=== PATIENT | female | born 1965 | race American Indian/Alaskan Native ===

== ENCOUNTER 2016-11-16 18:51 | Emergency (ER) | payer OTHER ==
[2016-11-16 19:03] VITALS: BP 145/101
[2016-11-16] MEDS ORDERED: BOOSTRIX IM ONE (20:20)
--- NOTE | 2016-11-16 20:25 | Emergency Department Report ---
ED Lower Extremity HPI - General Chief Complaint: Extremity Injury, Lower Stated Complaint: GLASS IN FOOT Time Seen by Provider: 11/16/16 20:08 Source: patient Mode of arrival: Ambulatory Limitations: No Limitations - History of Present Illness Initial Comments: I stepped on a piece of glass and got it in my foot MD Complaint: foot injury Onset/Timin -: hour(s) Injury: Foot: Right (glass/foriegn body ) Type of Injury: puncture wound Place: home Severity: mild Severity scale (0 -10): 3 Improves With: nothing Worsens With: weight bearing, palpation Context: other (stepped on piece of glass ) - Related Data Previous Rx's Medication Instructions Recorded Last Taken Type Bisacodyl [Dulcolax suppos] 10 mg DC QDAY PRN #12 supp.rect 03/15/16 Unknown Rx Levofloxacin [Levaquin TAB] 500 mg PO Q24HR #6 03/15/16 Unknown Rx metroNIDAZOLE [Flagyl TAB] 500 mg PO Q8H #18 tablet 03/15/16 Unknown Rx oxyCODONE /ACETAMINOPHEN [Percocet 1 tab PO Q6H PRN #12 tablet 03/15/16 Unknown Rx 5/325 mg] Allergies Allergy/AdvReac Type Severity Reaction Status Date / Time shellfish derived Allergy Hives Verified 07/24/15 14:01 ED Review of Systems ROS: Stated complaint: GLASS IN FOOT Other details as noted in HPI Constitutional: denies: chills, fever Eyes: denies: eye pain, eye discharge, vision change ENT: denies: ear pain, throat pain Respiratory: denies: cough, shortness of breath, wheezing Cardiovascular: denies: chest pain, palpitations Endocrine: no symptoms reported Gastrointestinal: denies: abdominal pain, nausea, diarrhea Genitourinary: denies: urgency, dysuria, discharge Musculoskeletal: other (right foot pain foreign body ) Skin: other (puncture wound right plantar foot ) Neurological: denies: headache, weakness, paresthesias Psychiatric: denies: anxiety, depression Hematological/Lymphatic: denies: easy bleeding, easy bruising ED Past Medical Hx - Past Medical History Previous Medical History?: Yes Hx Hypertension: Yes Hx Congestive Heart Failure: Yes Hx Diabetes: Yes Hx Renal Disease: No Hx Seizures: No Hx Asthma: No - Surgical History Past Surgical History?: Yes Hx Cholecystectomy: Yes Hx Appendectomy: Yes Additional Surgical History: hysterectomy. - Social History Smoking Status: Never Smoker Substance Use Type: Prescribed - Medications Home Medications: Home Medications Medication Instructions Recorded Confirmed Last Taken Type Bisacodyl [Dulcolax suppos] 10 mg DC QDAY PRN #12 supp.rect 03/15/16 Unknown Rx Levofloxacin [Levaquin TAB] 500 mg PO Q24HR #6 03/15/16 Unknown Rx metroNIDAZOLE [Flagyl TAB] 500 mg PO Q8H #18 tablet 03/15/16 Unknown Rx oxyCODONE /ACETAMINOPHEN [Percocet 1 tab PO Q6H PRN #12 tablet 03/15/16 Unknown Rx 5/325 mg] ED Physical Exam - General Limitations: No Limitations General appearance: alert, in no apparent distress - Head Head exam: Present: atraumatic, normocephalic - Eye Eye exam: Present: normal appearance - ENT ENT exam: Present: mucous membranes moist - Neck Neck exam: Present: normal inspection - Respiratory Respiratory exam: Present: normal lung sounds bilaterally. Absent: respiratory distress - Cardiovascular Cardiovascular Exam: Present: regular rate, normal rhythm. Absent: systolic murmur, diastolic murmur, rubs, gallop - GI/Abdominal GI/Abdominal exam: Present: soft, normal bowel sounds - Rectal Rectal exam: Present: deferred - Expanded Lower Extremity Exam Right Hip exam: Present: normal inspection Upper Leg exam: Present: normal inspection Knee exam: Present: normal inspection Lower Leg exam: Present: normal inspection Ankle exam: Present: normal inspection Foot/Toe exam: Present: full ROM, tenderness, puncture wound (foreignbody less than 1 cm, ), foreign body. Absent: swelling, abrasion, ecchymosis, deformity, crepidus, dislocation, erythema, amputation, calcaneal tenderness, tenderness at base of 5th metatarsal, nail avulsion, subungual hematoma Neuro vascular tendon exam: Present: no vascular compromise. Absent: pulse deficit, abnormal cap refill, motor deficit, sensory deficit, tendon deficit, extremity cold to touch, pallor, abnormal 2-point discrimination, decreased fine /light touch, foot drop, peroneal nerve deficit, significant pain with passive ROM of distal joint Gait: Positive: observed and limited by pain ED Course Vital Signs 11/16/16 18:59 Temperature 98.2 F Pulse Rate 75 Respiratory 20 Rate Blood Pressure 145/101 O2 Sat by Pulse 100 Oximetry - I & D Right Plantar Foot Type of Procedure: Simple Site: right plantar foot I & D Procedure: betadine prep Progress: foreign body removal glass shaving, sit cleaned with betadine solution , anesthesia with 1% lidocaine plain, shaving remove via 18g needle straight stick time 1, shaving less than 1 cm removed intact pt advises foreign body sensation relieved ambulatory gait steady, bandaid applied no bleeding pt tolerated procedure with minimal distress ED Lower Extremity MDM - Medical Decision Making pt stepped on a piece of glass on floor at home appoximated 4 hrs ago foreignbody sensation preventing full weight bearing, foreign body removed intact, see procedure note, pt tolerated same with minimal distress, tdap at this time, pt now ambullatory gait steady foreign body sensation is relieved. Critical care attestation.: If time is entered above; I have spent that time in minutes in the direct care of this critically ill patient, excluding procedure time. ED Disposition Clinical Impression: Foreign body in foot, right Qualifiers: Encounter type: initial encounter Qualified Code(s): S90.851A - Superficial foreign body, right foot, initial encounter Diverticulitis large intestine Qualifiers: Diverticulitis bleeding: without bleeding Diverticulitis complication: without perforation or abscess Qualified Code(s): K57.32 - Diverticulitis of large intestine without perforation or abscess without bleeding Disposition: DC-01 TO HOME OR SELFCARE Is pt being admited?: No Does the pt Need Aspirin: No Condition: Good Instructions: Soft Tissue Foreign Body (ED) Referrals: PRIMARY CARE, [Primary Care Provider] - 3-5 Days Forms: Work/School Release Form(ED) Time of Disposition: 20:31
== END 2016-11-16 20:51 | disposition home or self-care (01) ==
LOC: ED 18:51
DX: S90.851A Superficial foreign body, right foot, initial encounter (principal); K57.32 Diverticulitis of large intestine without perforation or abscess without bleeding; I10 Essential (primary) hypertension; I50.9 Heart failure, unspecified; E11.9 Type 2 diabetes mellitus without complications; Z90.49 Acquired absence of other specified parts of digestive tract; Z91.013 Allergy to seafood; W45.8XXA Other foreign body or object entering through skin, initial encounter; W25.XXXA Contact with sharp glass, initial encounter; Y93.89 Activity, other specified; Y92.89 Other specified places as the place of occurrence of the external cause; Y99.8 Other external cause status
CPT/HCPCS: 90471; 90715

== ENCOUNTER 2018-07-19 09:36 | Emergency (ER) | payer OTHER ==
[2018-07-19 09:49] VITALS: BP 149/99
[2018-07-19] MEDS ORDERED: NACL 0.9% 1000 ML 1,000 ML IV ONE (09:49)
[2018-07-19 10:08] LABS: Basophils # (Auto) 0.1 K/mm3 (0.0-0.1); Basophils % (Auto) 0.9 % (0.0-1.8); Eosinophils % (Auto) 0.5 % (0.0-4.3); Hematocrit 35.4 % (30.3-42.9); Hemoglobin 11.6 gm/dl (10.1-14.3); Lymphocytes # (Auto) 1.6 K/mm3 (1.2-5.4); Lymphocytes % (Auto) 25.6 % (13.4-35.0); Mean Corpuscular HGB Conc 33 % (30-34); Mean Corpuscular Volume 76 fl (79-97); Monocytes # (Auto) 0.5 K/mm3 (0.0-0.8); Monocytes % (Auto) 8.7 % (0.0-7.3); Platelet Count 272 K/mm3 (140-440); Red Blood Count 4.69 M/mm3 (3.65-5.03)
[2018-07-19 10:24] LABS: Alanine Aminotransferase 10 units/L (7-56); Albumin 3.8 g/dL (3.9-5); BUN/Creatinine Ratio 14; Blood Urea Nitrogen 10 mg/dL (7-17); Calcium 9.5 mg/dL (8.4-10.2); Hemolysis Index 32
[2018-07-19 10:28] LABS: Bilirubin,Urine NEG (Negative); Blood,Urine NEG (Negative); Color,Urine Straw (Yellow); Protein,Urine <15 mg/dL mg/dL (Negative); Urobilinogen,Urine < 2.0 mg/dL (<2.0); WBC,Urine < 1.0 /HPF (0.0-6.0)
[2018-07-19] MEDS ORDERED: MORPHINE IM ONE (10:56)
[2018-07-19] MEDS ORDERED: ZOFRAN IM ONE (10:56)
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
--- NOTE | 2018-07-19 11:59 | Cat Scan Report ---
PROCEDURE: CT ABDOMEN PELVIS W CON TECHNIQUE: Computerized axial tomography of the abdomen and pelvis was performed after the IV inject ion of iodinated nonionic contrast. Coronal and sagittal reconstructed imaging provided. CT DOSE LENGTH PRODUCT: 3645.80 mGy-cm. HISTORY: abdominal pain COMPARISONS: None currently available. FINDINGS: Abdomen: Lung bases and images of the heart are grossly unremarkable. Prior cholecystectomy. Liver, stomach, spleen, pancreas, and adrenals are unremarkable. Kidneys: Symmetrical cortical enhancement. No suspicious lesions. No hydronephrosis. No aneurysm. No dissection. Mild atherosclerotic disease. IVC is unremarkable. There is no periaortic or retroperitoneal adenopathy or mass. Sections of the descending proximal sigmoid colon are collapsed which limits evaluation for wall thic kening. A mild colitis is not entirely excluded. Mild wall thickening suspected. There may be some mi nimal stranding. No perforation. No abscess. Mild to moderate stool in the remainder of the colon wit hout wall thickening or stranding. Terminal ileum is unremarkable. The appendix is not identified. There are no pericecal inflammatory changes. Small bowel loops are unremarkable. No obstructive pattern. No air-fluid levels. No free air. No free fluid. Mesentery is unremarkable. Midline incisional scar. Pelvis: Limited images of the uterus are unremarkable. Bladder: Unremarkable. Delayed images does not demonstrate any wall thickening or filling defects. There is no pelvic mass or adenopathy. Inguinal regions are unremarkable. Bones: No suspicious osseous lesions on this limited examination of the skeleton. Metastatic disease better evaluated with bone scan. Degenerative changes are in the spine. IMPRESSION: * Suspect mild colitis or diverticulitis of the descending and proximal sigmoid colon without perfor ation or abscess. . This document is electronically signed by Terrance Booth MD., July 19 2018 11:57:17 AM ET
== END 2018-07-19 13:43 | disposition home or self-care (01) ==
LOC: ED 09:36
DX: K57.32 Diverticulitis of large intestine without perforation or abscess without bleeding (principal); I11.0 Hypertensive heart disease with heart failure; E11.9 Type 2 diabetes mellitus without complications; Z90.49 Acquired absence of other specified parts of digestive tract; Z91.013 Allergy to seafood; Z90.710 Acquired absence of both cervix and uterus
CPT/HCPCS: 36415; 74177; 80053; 81001; 85025; 96372; 99284; J2270; J2405; J7030; Q9967

== ENCOUNTER 2019-01-18 22:26 | Emergency (ER) | payer BC, OTHER ==
[2019-01-19] MEDS ORDERED: NACL 0.9% 1000 ML 1,000 ML IV ONE (02:27)
[2019-01-19 03:28] LABS: Basophils % (Auto) 0.3 % (0.0-1.8); Eosinophils % (Auto) 0.4 % (0.0-4.3); Hematocrit 37.1 % (30.3-42.9); Hemoglobin 12.2 gm/dl (10.1-14.3); Lymphocytes # (Auto) 2.1 K/mm3 (1.2-5.4); Lymphocytes % (Auto) 25.2 % (13.4-35.0); Mean Corpuscular HGB Conc 33 % (30-34); Mean Corpuscular Volume 76 fl (79-97); Monocytes # (Auto) 0.7 K/mm3 (0.0-0.8); Monocytes % (Auto) 8.1 % (0.0-7.3); Platelet Count 317 K/mm3 (140-440); Red Cell Distribution Width 14.6 % (13.2-15.2)
[2019-01-19 03:47] LABS: BUN/Creatinine Ratio 23; Blood Urea Nitrogen 16 mg/dL (7-17); Calcium 9.9 mg/dL (8.4-10.2); Hemolysis Index 2
--- NOTE | 2019-01-19 05:13 | Cat Scan Report ---
CT ABDOMEN AND PELVIS WITH CONTRAST INDICATION: Abd pain, constipation CONTRAST: 100 cc Omnipaque 300 IV COMPARISON: 07/19/[address] scans at this location are performed using CT dose reduction for ALARA by means of automated e xposure control. NOTE: Resolution is decreased and artifact is introduced by the patient's size. FINDINGS: Lung bases are clear. No pneumoperitoneum is seen. Gallbladder has been removed. No biliary dilatation is seen. No urinary or bowel obstructive changes are noted. Appendix is not identified. M oderate amount of stool is seen in the colon, more on the right, which may indicate mild constipation . Diverticulosis is seen of the descending and sigmoid colon without obvious formation. No inflammato ry changes are seen. No free fluid is noted. No masses are seen. IMPRESSION: No acute abnormalities are seen Signer Name: Micah Lea MD Signed: 01/19/2019 5:08 AM Workstation Name: [id number]
--- NOTE | 2019-01-19 05:45 | XRay Report ---
ABDOMEN FLAT AND UPRIGHT PORTABLE 0244 INDICATION: Abd pain, constipation for several days, rectal pain, rectal bleeding for 2 days COMPARISON: None available. FINDINGS: No pneumoperitoneum is seen. Bowel gas pattern is unremarkable. I do not see a significant increase in colonic stool. No evidence of bowel obstruction is seen. No obvious urinary tract calculi are noted. Signer Name: Micah Lea MD Signed: 01/19/2019 5:40 AM Workstation Name: [id number]
--- NOTE | 2019-01-19 06:10 | Emergency Department Report ---
HPI - General Time Seen by Provider: 01/19/19 01:35 - HPI HPI: 53-year-old female presents to the emergency department with a complaint of some lower abdominal pain and constipation. Patient says she has not had a bowel movement since last , 5 days ago. The patient has tried multiple [id number] medications including MiraLAX, 2 doses of Colace, and a Fleet enema. She just complains of some rectal pain with some mild bleeding. She denies any past medical history. She has a primary care physician but has not seen them regarding her symptoms. No recent travel or sick contacts at home. She denies any fever, dysuria, vaginal discharge. ED Past Medical Hx - Past Medical History Previous Medical History?: Yes Hx Hypertension: Yes Hx Congestive Heart Failure: Yes Hx Diabetes: Yes Hx Renal Disease: No Hx Seizures: No Hx Asthma: No - Surgical History Past Surgical History?: Yes Hx Cholecystectomy: Yes Hx Appendectomy: Yes Additional Surgical History: hysterectomy. - Social History Smoking Status: Never Smoker Substance Use Type: None - Medications Home Medications: Home Medications Medication Instructions Recorded Confirmed Last Taken Type Bisacodyl [Dulcolax suppos] 10 mg TX QDAY PRN #12 supp.rect 03/15/16 Unknown Rx levoFLOXacin [Levaquin TAB] 500 mg PO Q24HR #6 03/15/16 Unknown Rx metroNIDAZOLE [Flagyl TAB] 500 mg PO Q8H #18 tablet 03/15/16 Unknown Rx oxyCODONE /ACETAMINOPHEN [Percocet 1 tab PO Q6H PRN #12 tablet 03/15/16 Unknown Rx 5/325 mg] Amoxicillin/Potassium Clav 1 each PO BID #20 tablet 07/19/18 Unknown Rx [Augmentin 875-125 Tablet] HYDROcodone/APAP 5-325 [[place] 1 each PO Q6HR PRN #14 tablet 07/19/18 Unknown Rx 5/325] Ondansetron [Zofran Odt] 4 mg PO Q8HR PRN #14 tab.rapdis 07/19/18 Unknown Rx metroNIDAZOLE [Flagyl] 500 mg PO Q12HR #14 tab 07/19/18 Unknown Rx Docusate Sodium [Colace] 100 mg PO BID PRN #20 capsule 01/19/19 Unknown Rx Magnesium Citrate [Citrate of 300 ml PO NOW PRN #1 bottle 01/19/19 Unknown Rx Magnesia] ED Review of Systems ROS: Stated complaint: RECTAL PAIN/CONSTIPATION Other details as noted in HPI Comment: All other systems reviewed and negative Constitutional: denies: chills, fever Eyes: denies: eye pain, vision change ENT: denies: ear pain, throat pain Respiratory: denies: cough, shortness of breath Cardiovascular: denies: chest pain, palpitations Gastrointestinal: abdominal pain, constipation, other (rectal pain and bleeding). denies: nausea, vomiting Genitourinary: denies: dysuria, discharge Musculoskeletal: denies: back pain, arthralgia Skin: denies: rash, lesions Neurological: denies: headache, weakness Physical Exam - Physical Exam Vital Signs: Vital Signs 01/19/19 01/19/19 01/19/19 01:55 02:30 03:01 Temperature 97.8 F Pulse Rate 80 76 82 Respiratory 17 15 20 Rate Blood Pressure 112/61 120/65 124/67 Blood Pressure 112/61 [Left] O2 Sat by Pulse 99 98 96 Oximetry 01/19/19 01/19/19 03:30 04:50 Temperature Pulse Rate 72 72 Respiratory 17 20 Rate Blood Pressure 132/87 Blood Pressure 137/104 [Left] O2 Sat by Pulse 93 96 Oximetry Physical Exam: GENERAL: The patient is well-developed well-nourished. HENT: Normocephalic. Atraumatic. Patient has moist mucous membranes. EYES: Extraocular motions are intact. Pupils equal reactive to light bilaterally. NECK: Supple. Trachea is midline. CHEST/LUNGS: Clear to auscultation. There is no respiratory distress noted. HEART/CARDIOVASCULAR: Regular. There is no tachycardia. There is no murmur. ABDOMEN: Abdomen is soft. Lower abdominal tenderness to palpation. No guarding. Patient has normal bowel sounds. Morbidly obese habitus. SKIN: Skin is warm and dry. NEURO: The patient is awake, alert, and oriented. The patient is cooperative. The patient has no focal neurologic deficits. Normal speech. MUSCULOSKELETAL: There is no tenderness or deformity. There is no limitation range of motion. There is no evidence of acute injury. RECTAL: There is some mild tenderness to palpation of the rectum. No obvious fluctuance or abscess. No hemorrhoids. No gross blood. Stool is negative on guaiac testing. ED Course Vital Signs 01/19/19 01/19/19 01/19/19 01:55 02:30 03:01 Temperature 97.8 F Pulse Rate 80 76 82 Respiratory 17 15 20 Rate Blood Pressure 112/61 120/65 124/67 Blood Pressure 112/61 [Left] O2 Sat by Pulse 99 98 96 Oximetry 01/19/19 01/19/19 03:30 04:50 Temperature Pulse Rate 72 72 Respiratory 17 20 Rate Blood Pressure 132/87 Blood Pressure 137/104 [Left] O2 Sat by Pulse 93 96 Oximetry ED Medical Decision Making - Lab Data Result diagrams: 01/19/19 02:50 01/19/19 02:50 - Radiology Data Radiology results: report reviewed, image reviewed interpreted by me: Abdominal x-ray shows nonspecific nonobstructive bowel gas CT ABDOMEN AND PELVIS WITH CONTRAST INDICATION: Abd pain, constipation CONTRAST: 100 cc Omnipaque 300 IV COMPARISON: 07/19/[address] scans at this location are performed using CT dose reduction for ALARA by means of automated exposure control. NOTE: Resolution is decreased and artifact is introduced by the patient's size. FINDINGS: Lung bases are clear. No pneumoperitoneum is seen. Gallbladder has been removed. No biliary dilatation is seen. No urinary or bowel obstructive changes are noted. Appendix is not identified. Moderate amount of stool is seen in the colon, more on the right, w hich may indicate mild constipation. Diverticulosis is seen of the descending and sigmoid colon without obvious formation. No inflammatory changes are seen. No free fluid is noted. No masses are seen. IMPRESSION: No acute abnormalities are seen - Medical Decision Making This patient presents with the complaint of constipation, abdominal pain, rectal pain and some rectal bleeding. Abdomen is soft, with some mild lower abdominal tenderness. There is no rigidity and it is nontoxic in appearance. She has an obese habitus. Rectal examination does not show any gross bleeding. There are no hemorrhoids, lesions and stool is negative on guaiac testing. Labs have be en mostly unremarkable. Both abdominal x-ray and CT scan of the abdomen and pelvis with IV contrast did not show any signs of bowel obstruction. There is a mild to moderate amount of stool volume showing some mild constipation. The patient was given a choice of trying an enema versus outpatient prescription medications and has chosen to go with the prescriptions. She'll be given some Colace, magnesium citrate and we discussed increasing her oral rehydration. She was given a referral for gastroenterology regarding her abdominal pain, rectal pain and rectal bleeding. She will return to the ER with any worsening of her symptoms or any acute distress. - Differential Diagnosis bowel obstruction, constipation, malignancy, colitis, hemorrhoids Critical Care Time: No Critical care attestation.: If time is entered above; I have spent that time in minutes in the direct care of this critically ill patient, excluding procedure time. ED Disposition Clinical Impression: Rectal pain, Rectal bleeding Abdominal pain Qualifiers: Abdominal location: lower abdomen, unspecified Qualified Code(s): R10.30 - Lower abdominal pain, unspecified Constipation Qualifiers: Constipation type: unspecified constipation type Qualified Code(s): K59.00 - Constipation, unspecified Disposition: TO HOME OR SELFCARE Is pt being admited?: No Condition: Stable Instructions: Constipation (ED), Rectal Bleeding (ED), High Fiber Diet (ED), Abdominal Pain (ED) Additional Instructions: Please follow-up with your primary care physician in the next few days. I'm also giving you a referral for her to gastroenterology to follow up regarding your abdominal pain, constipation, rectal pain and rectal bleeding. Return to the emergency Department with any worsening of your symptoms or any acute distress. Prescriptions: Magnesium Citrate [Citrate of Magnesia] 300 ml PO NOW PRN #1 bottle PRN Reason: Constipation Docusate Sodium [Colace] 100 mg PO BID PRN #20 capsule PRN Reason: Constipation Referrals: [facility] [Provider Group] - 2-3 Days PCP, Your [Other] - 2-3 Days Time of Disposition: 06:13
[2019-01-19 06:54] VITALS: BP 136/84
== END 2019-01-19 06:50 | disposition home or self-care (01) ==
LOC: ED 22:26
DX: K62.5 Hemorrhage of anus and rectum (principal); K59.00 Constipation, unspecified; R10.30 Lower abdominal pain, unspecified; I11.0 Hypertensive heart disease with heart failure; I50.9 Heart failure, unspecified; E11.9 Type 2 diabetes mellitus without complications; Z90.710 Acquired absence of both cervix and uterus; Z90.49 Acquired absence of other specified parts of digestive tract; Z98.890 Other specified postprocedural states; Z79.899 Other long term (current) drug therapy; Z91.013 Allergy to seafood
CPT/HCPCS: 36415; 74019; 74177; 80048; 83690; 85025; 99285; J7030; Q9967